=== PATIENT | male | born 1950 | race Caucasian/White ===

== ENCOUNTER → 2017-04-06 | Outpatient (CLI) | payer MEDICARE, BC ==
--- NOTE | 2017-04-06 12:10 | MRI ---
EXAM DESCRIPTION: Brain w/wo Contrast CLINICAL HISTORY: MS COMPARISON: MR brain with and without gadolinium IV contrast 04/23/2016. TECHNIQUE: Multiplanar, high-field MRI, multiple conventional sequences, without and with gadolinium IV contrast. No adverse reactions. Multiple axial diffusion sequences. Also postcontrast 3-D TFE multiplanar images for MS protocol. FINDINGS: Bilateral bright FLAIR and T2-weighted signal in the periventricular white matter and ceballos-white matter junctions of the cerebral hemispheres. Relatively symmetric, but slightly more to the right of midline . Normal signal in the bilateral basal ganglia. No hemorrhage, no cerebral edema, no mass-effect. Normal contrast enhancement. Normal signal in the brainstem and cerebellar hemispheres. No hemorrhage, no cerebral edema, no mass-effect. Normal contrast enhancement. Concordance of the diffusion and non-diffusion sequences with no evidence of acute or subacute infarction. Cortical sulci, ventricles, and other CSF spaces, and the subdural spaces are slightly prominent for age. Stable since the prior study. No effacement or displacement. No midline shift. No extra-axial hemorrhage. Normal contrast enhancement. Normal flow signal void in the major vessels of the semin[place], and the venous sinuses. IACs are symmetric bilaterally. No signal in the bilateral mastoid air cells. No mass effect in the bilateral Cerebellopontine angles. Normal contrast enhancement. Pituitary gland occupies most of the sella. Normal contrast enhancement. Base of the cerebellar tonsils is above the foramen magnum. Included paranasal sinuses with minimal mucoperiosteal thickening. The bony calvarium is intact. IMPRESSION: 1. Periventricular and subcortical white matter changes are stable since the prior study April 2016. No abnormal enhancement. No new white matter and ceballos matter lesions with abnormal enhancement. 2. Atrophic changes are also stable since the prior study. 3. Normal noncontrast MRI diffusion scan with no evidence of acute or subacute infarction. Electronically signed by: Pantera Brannon MD 04/06/2017 12:08 PM CDT Workstation: [id number]
== END | disposition home or self-care (01) ==
LOC: MRI 12:45
PROVIDERS: ATTEND Psychiatry & Neurology Neurology
DX: G35 Multiple sclerosis (principal)

== ENCOUNTER → 2020-06-21 | Outpatient (CLI) | payer MEDICARE, BC ==
--- NOTE | 2020-06-21 16:15 | RAD ---
EXAM DESCRIPTION: Hand,Right 3 Views CLINICAL HISTORY: PAIN IN RIGHT HAND COMPARISON: None. TECHNIQUE: 3 views right FINDINGS: Exam reveals a remote fracture of the distal phalanx of the second digit. 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 No acute fracturing is seen. Mild digital artery calcification is noted. Some subchondral cyst formation is observed in the scaphoid. IMPRESSION: Exam reveals evidence of prior fracture of the distal phalanx of the second digit. No acute injury is seen. Electronically signed by: Desmond Enriquez MD 06/21/2020 4:14 PM [facility]
== END ==
LOC: RAD 09:47
PROVIDERS: ATTEND Orthopaedic Surgery
DX: Z01.818 Encounter for other preprocedural examination (principal); S62.631A Displaced fracture of distal phalanx of left index finger, initial encounter for closed fracture

== ENCOUNTER 2020-07-09 05:50 | Day surgery (SDC) | payer MEDICARE, BC ==
[2020-07-09] MEDS ORDERED: PROPOFOL 200 MG/20 ML VIAL IV ONE (05:51)
[2020-07-09] MEDS ORDERED: LACTATED RINGERS 1,000 ML ONE (06:04)
[2020-07-09] MEDS ORDERED: SODIUM CHLORIDE 0.9% (FLUSH) 10 ML SYG ONE (06:04)
[2020-07-09] MEDS ORDERED: SODIUM CHL 0.9% 100ML MINI-BAG 100 ML IVPB ONE (06:04)
[2020-07-09] MEDS ORDERED: ceFAZolin SODIUM 1 GM VIAL ONE (06:04)
[2020-07-09] MEDS ORDERED: BUPIVACAINE 0.25% INJ 30 ML VIAL INJ ONE (06:42)
[2020-07-09] MEDS ORDERED: LIDOCAINE 1% 10 ML VIAL INJ ONE (06:42)
[2020-07-09] MEDS: ceFAZolin SODIUM 1 GM VIAL ONE ×2 (09:29→09:37)
[2020-07-09] MEDS: VANCOMYCIN HCL INJ 1,000 MG VIAL IVPB ONE ×2 (09:29→09:37)
[2020-07-09 10:39] VITALS: BP 152/71; TEMP 97.7; O2SAT 97
--- NOTE | 2020-07-11 09:29 | OP ---
DATE OF PROCEDURE: 07/09/20 PREOPERATIVE DIAGNOSIS: 1. Fifth digit trigger finger. POSTOPERATIVE DIAGNOSIS: 1. Fifth digit trigger finger. PROCEDURE: 1. Trigger finger release. SURGEON: Jesus Rojo MD. WATCHSTANDER: Pantera Gonzalez CST, SA-C. ANESTHESIA: Local with sedation. COMPLICATIONS: None. FINDINGS: Triggering at the A1 manfred of the fifth digit. INDICATION: Mr. De La Paz has a history of both triggering and pain at the A1 manfred of the fifth digit. Unfortunately, he is having progressive worsening of this and as such, he has requested operative intervention. After discussing the risks, benefits and alternatives to operative therapy, the patient has given informed consent for trigger finger release. PROCEDURE: The patient was brought to the Operating Room and placed in the supine position. Sedation was administered and local anesthetic was injected into the operative area. Following injection, the arm was sterilely prepped and draped. A transverse incision was made directly overlying the A1 manfred of the triggering digit and blunt dissection was carried down to the manfred while protecting the digital nerves. After identification of the manfred, the manfred was transected and a [place] elevator was passed both proximally and distally to ensure complete release. The finger was flexed and extended and there was no evidence of locking or clicking. The wound was thoroughly irrigated and closed with Nylon suture. A sterile dressing was placed and the patient was taken to the Day Surgery Unit. POSTOPERATIVE PLAN: The patient has been encouraged to do range of motion of the digits and will followup with us in two days. #[id number] [facility]
== END 2020-07-09 10:35 | disposition home or self-care (01) ==
LOC: AMB 05:50
PROVIDERS: ATTEND Orthopaedic Surgery
DX: M65.351 Trigger finger, right little finger (principal); I10 Essential (primary) hypertension; E66.9 Obesity, unspecified; F32.9 Major depressive disorder, single episode, unspecified; E11.9 Type 2 diabetes mellitus without complications; G47.30 Sleep apnea, unspecified; Z88.0 Allergy status to penicillin; Z79.82 Long term (current) use of aspirin; Z79.899 Other long term (current) drug therapy; Z99.89 Dependence on other enabling machines and devices; Z68.34 Body mass index [BMI] 34.0-34.9, adult
CPT/HCPCS: 01810; 26055; 36416; 80307; 82948; A4216; J0690; J3370; J3490; J7050; J7120